=== PATIENT | male | born 1965 | race Caucasian/White ===

== ENCOUNTER 2018-02-04 07:30 | Day surgery (SDC) | payer OTHER ==
[2018-02-04] MEDS ORDERED: Propofol 10 mg/ml Inj (20 ML) ONE (09:05)
--- NOTE | 2018-02-04 09:09 | CP.SDSHP ---
Same Day Surgery H & P - History Proposed Procedure: screening colonoscopy Pre-Op Diagnosis: screening for colon neoplasia/cancer - Previous Medical/Surgical History Cardiac: Hypertension, Other (hyperlipidemia) Endocrine/Metabolic: Diabetes Previous Surgical History: T & A - Allergies Allergies: Allergies SEASONAL Allergy (Uncoded 02/04/18 08:55) CONGESTION - Physical Exam Vital Signs: Vital Signs 02/04/18 08:45 Temperature 99 F Pulse Rate 80 Respiratory 20 Rate Blood Pressure 152/96 H O2 Sat by Pulse 98 Oximetry Mental Status: Alert & Oriented x3 Neuro: WNL Heart: WNL Lungs: WNL GI: WNL - Impression Impression: screening for colon neoplasia/cancer Pt. Evaluated Today:Candidate for Anesthesia & Procedure: Yes - Date & Time Date: 02/04/18 Time: 09:09 Short Stay Discharge - Short Stay Discharge Admitting Diagnosis/Reason for Visit: ENCOUNTER FOR SCREENING FOR MALIGNANT NEOPLASM OF Disposition: HOME/ ROUTINE
[2018-02-04] MEDS ORDERED: Lactated Ringer's 500 ML IV ONE ×2 (09:11)
[2018-02-04 09:57] VITALS: TEMP 98.4; O2SAT 100
[2018-02-04 10:29] VITALS: BP 116/71; PULSE 74; RESP 18
== END 2018-02-04 10:45 | disposition home or self-care (01) ==
LOC: C.ENDO 07:30
PROVIDERS: ATTEND Internal Medicine Gastroenterology
DX: Z12.11 Encounter for screening for malignant neoplasm of colon (principal); K57.30 Diverticulosis of large intestine without perforation or abscess without bleeding; K64.1 Second degree hemorrhoids; E11.9 Type 2 diabetes mellitus without complications; E78.49 Other hyperlipidemia; I10 Essential (primary) hypertension
CPT/HCPCS: 45378; 82948; J2704; J7120

== ENCOUNTER 2018-04-30 18:22 | Outpatient (CLI) | payer OTHER | END 2018-04-30 18:23 | disposition home or self-care (01) | LOC: C.SLEEP 18:23 | DX: G47.33 Obstructive sleep apnea (adult) (pediatric) (principal) ==